=== PATIENT | female | born 1970 | race Caucasian/White ===

== ENCOUNTER 2016-09-10 14:26 | Emergency (ER) | payer OTHER | END 2016-09-10 15:05 | disposition home or self-care (01) | LOC: CED 14:26 | DX: T40.1X1A Poisoning by heroin, accidental (unintentional), initial encounter (principal); F17.200 Nicotine dependence, unspecified, uncomplicated; Z88.5 Allergy status to narcotic agent | CPT/HCPCS: 99282 ==